=== PATIENT | male | born 1980 | race African-American/Black ===

== ENCOUNTER 2019-08-09 19:06 | Emergency (ER) | payer BC, OTHER ==
[~2019-08-09] VITALS: Ht 180.3 cm; Wt 97.5 kg
[2019-08-09] MEDS ORDERED: PREDNISONE 20 M20 MG PO (20:22)
[2019-08-09] MEDS ORDERED: CLARITIN-D 121 EAC1 PO (20:22)
[2019-08-09] MEDS ORDERED: FLONASE 0.05%50 MCG NASAL (20:22)
[2019-08-09 20:38] VITALS: BP 104/72
== END 2019-08-09 20:52 | disposition home or self-care (01) ==
LOC: ER 19:06
DX: H91.8X2 Other specified hearing loss, left ear (principal); F17.210 Nicotine dependence, cigarettes, uncomplicated